=== PATIENT | male | born 1975 | race Caucasian/White ===

== ENCOUNTER 2025-01-17 14:38 | Emergency (ER) | payer MEDICAID ==
[~2025-01-17] VITALS: Ht 165.1 cm; Wt 73.0 kg
[2025-01-17 14:46] VITALS: O2SAT 97
[2025-01-17 16:06] LABS: BASOPHILS % 0.7 % (0.0-2.0); EOSINOPHILS % 1.2 % (0.0-5.0); HEMATOCRIT. 44.9 % (42.0-52.0); HEMOGLOBIN. 15.5 g/dL (14.0-18.0); LYMPHOCYTES % 13.5 % (20.0-50.0); MEAN PLATELET VOLUME 8.7 fl (7.4-10.4); MONOCYTES % 6.4 % (2.0-8.0); NEUTROPHILS % 78.2 % (40.0-76.0); PLATELET 175 x1000/uL (130-400); RED BLOOD CELL COUNT 4.84 mill/uL (4.7-6.1); RED CELL DISTRIBUTION WIDTH 13.6 % (11.6-14.6)
[2025-01-17 16:19] LABS: CREATININE 1.0 mg/dL (0.6-1.3); TROPONIN I HIGH SENSITIVITY 6 ng/L (3.0-53); UREA NITROGEN BLOOD 11 mg/dL (9-23)
[2025-01-17 16:21] LABS: ASPARTATE AMINOTRANSFERASE 48 IU/L (<34); BILIRUBIN DIRECT 0.4 mg/dL (<=3.0)
[2025-01-17 16:22] LABS: BILIRUBIN TOTAL 1.3 mg/dL (0.1-1.0); PROTEIN TOTAL 7.3 g/dL (6.0-8.3)
[2025-01-17 20:15] VITALS: BP 147/119; PULSE 72; RESP 18; TEMP 36.6; O2SAT 100
== END 2025-01-17 21:24 | disposition short-term general hospital (02) ==
LOC: ER 14:38 → CMPBEDREQ 01-18 19:26
DX: R07.89 Other chest pain (principal); F10.20 Alcohol dependence, uncomplicated; F17.200 Nicotine dependence, unspecified, uncomplicated; I10 Essential (primary) hypertension; R06.02 Shortness of breath; Y90.9 Presence of alcohol in blood, level not specified
CPT/HCPCS: 80076; 80048; 83880; 83735; 85025; 84484; 36415; 71045; 93005; 99285; Z7610